=== PATIENT | male | born 1950 | race Caucasian/White ===

== ENCOUNTER 2024-01-25 10:59 | Emergency (ER) | payer OTHER, SELFPAY ==
[2024-01-25 11:02] VITALS: BP 149/86
--- NOTE | 2024-01-25 11:54 | ED.GENMED ---
History of Present Illness
General
Chief Complaint: Fall
Time Seen by Provider: 01/25/24 11:54
Travel History
Have you had any contact with someone who has COVID-19?: No
Do you have any symptoms of coronavirus? Fever > 100 degrees, chills, cough, shortness of breath, sore throat, loss of taste or smell, muscle aches, or headache?: No
History of Present Illness
History of Present Illness:
HPI: The patient came in due to a fall that occurred yesterday. He was trying to go up 1 step yesterday evening while carrying his 45 pound 3-year-old grandson. He reached for the railing but then fell. He describes the fall as 'a belly flop onto
my back'. He has some discomfort in the upper but more so in the lower back. He struck his head and takes baby aspirin daily.
EXAM:
GENERAL: Well appearing in no distress
CERVICAL SPINE: No midline c-spine tenderness with excellent AROM
HEAD: No evidence of craniofacial trauma
CHEST: No chest wall tenderness, normal heart sounds, there is some mild tenderness to the upper posterior thorax just to the right of midline
LUNGS: Equal lung sounds, no respiratory distress
ABDOMEN: No abdominal tenderness, no peritoneal signs
EXTREMITIES: Normal active range of motion, no tenderness
BACK: There is midline L-spine tenderness
NEURO: Excellent strength all extremities, appropriate mental status, normal speech/language
TIME OF INITIAL ENCOUNTER: 12 PM
NUMBER AND COMPLEXITY OF PROBLEMS ADDRESSED AT THE ENCOUNTER
� Chronic conditions affecting care: Atrial fibrillation, has had aortic valve replacement 2009
� Acute Exacerbation and/or Progression of Chronic Illness: This is an acute problem
� Differential Diagnosis includes: Pneumothorax, contusion, lumbar spine fracture, intracranial hemorrhage
AMOUNT AND/OR COMPLEXITY OF DATA TO BE REVIEWED AND ANALYZED
� I performed an independent evaluation of and my interpretation is:
EKG:
CT: I personally reviewed CT imaging of the brain and lumbar spine
X-rays: I personally viewed chest x-ray and see no acute abnormality including no pneumothorax
Laboratory Studies:
Other:
� Review of other/old records: I reviewed records�the patient had colonoscopy in June of 2023
� Clinical information was obtained by an independent historian: None needed
� Prescriptions/Medications Considered but not given:
� Further testing considered but not performed:
RISK OF COMPLICATIONS AND/OR MORBIDITY OR MORTALITY OF PATIENT MANAGEMENT
� Social determinants of health affecting care: Lives at home
� Discussion with other providers:
� Escalation of care including admission/observation vs risk of discharge considered: CT imaging of the brain and L-spine were obtained given the patient's age. I also reviewed a chest x-ray and on my read shows no acute
abnormality. The patient appears very comfortable at time of discharge. He did try some Tylenol earlier. Recommend to limit the use of NSAIDs as he is on aspirin.
Past History
Past History
ED Past Medical History: Valvular disease ()
ED Past Surgical History: Cardiac (AVR)
Social History
Tobacco: Non-smoker
Alcohol: None
Drug: None
Living: with family
Phy Exam
Physical Exam
Physical Exam:
See HPI
Course
Orders/Labs/Results
Orders:
Orders
01/25/24 11:57
CT Head W/o Iv Contrast Urgent
Comment:
Reason For Exam: head trauma on aspirin
CT Lumbar Spine W/o Iv Contras Urgent
Comment:
Reason For Exam: low back pain trauma yesterday
01/25/24 11:58
CR Chest - 2 Views Urgent
Comment:
Reason For Exam: fall chest/upper back pain
Vital Signs
Initial and Last Documented VS:
Initial Vital Signs
Temp Pulse Resp BP Pulse Ox
98.2 F 107 18 149/86 96
01/25/24 11:02 01/25/24 11:02 01/25/24 11:02 01/25/24 11:02 01/25/24 11:02
Last Documented Vital Signs
Temp Pulse Resp BP Pulse Ox
98.2 F 107 18 149/86 96
01/25/24 11:02 01/25/24 11:02 01/25/24 11:02 01/25/24 11:02 01/25/24 11:02
*Critical Care Note
Total Time (30-74mins, 75-104mins- exclusive of procedures): Not Applicable
ED Attending Note
-
Portions of this chart may have been created with voice recognition software.� Occasional wrong word or��sound alike� substitutions may have occurred due to the inherent limitations of voice recognition software.
Discharge Plan
Departure
Patient Disposition: Home (Routine Discharge)
Date of Disposition: 01/25/24
Time of Disposition: 13:59
Patient with high blood pressure during this ER visit?: Yes
Discharge Problem:
Contusion of lower back
Instructions: Contusion (DC)
Prescriptions:
No Action
aspirin 81 MG tablet,delayed release (DR/EC)
81 mg PO DAILY
Heart Pill
1 tab PO DAILY
oxycodone-acetaminophen 5 MG/325 MG tablet
1 tab PO Q6HPRN PRN (Reason: pain) Qty: 12 0RF
Referrals:
Jerry Chase MD [Family Provider] -
Activity Restrictions/Additional Instructions:
The CAT scan of the brain shows no bleeding. The CAT scan of the lumbar spine shows no fracture. 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 Please follow-up your primary care doctor.
Tylenol is safest for pain since you are on aspirin and would recommend only limited use of Advil/Motrin. Return here if worse.
Interventions
Interventions:
*Risk Screen - Suicide Last Done: 01/25/24 11:05
*Neglect/Abuse Screening Last Done: 01/25/24 11:05
*ED COVID-19 Vaccine History Last Done: 01/25/24 11:05
ED-Musculoskeletal Assessment Last Done: 01/25/24 11:48
ED- Neurological Assessment Last Done: 01/25/24 11:48
ED-Skin Assessment Last Done: 01/25/24 11:48
Discharge Date and Time
Print Language: PORTUGUESE
[2024-01-25 14:11] VITALS: BP 146/87
== END 2024-01-25 14:18 | disposition home or self-care (01) ==
LOC: EMR 10:59
PROVIDERS: EMERGENCY PHYSICIAN Emergency Medicine; FAMILY PHYSICIAN Family Medicine
DX: S30.0XXA Contusion of lower back and pelvis, initial encounter (principal); W19.XXXA Unspecified fall, initial encounter; Z79.82 Long term (current) use of aspirin
CPT/HCPCS: 99284; 70450; 71046; 72131

== ENCOUNTER → 2024-02-17 16:18 | Outpatient (REF) | payer OTHER, SELFPAY | LOC: RAD 16:18 | PROVIDERS: ATTENDING PHYSICIAN Nurse Practitioner Family | DX: M54.9 Dorsalgia, unspecified (principal) | CPT/HCPCS: 72072 ==

== ENCOUNTER → 2025-01-11 14:27 | Outpatient (REF) | payer OTHER, SELFPAY | LOC: HWRCS 14:27 | PROVIDERS: ATTENDING PHYSICIAN Student in an Organized Health Care Education/Training Program; FAMILY PHYSICIAN Family Medicine | DX: R35.1 Nocturia (principal) | CPT/HCPCS: 93306 ==